=== PATIENT | male | born 1945 | race Caucasian/White ===

== ENCOUNTER 2018-06-04 15:20 | Inpatient (IN) ==
[2018-06-04] MEDS ORDERED: ONDANSETRON ODT 4 MG TABLET PO STA (16:10)
[2018-06-04 16:20] LABS: Basophils % 0.2 % (0.0-0.8); Hemoglobin 12.1 GM/DL (14.0-18.0); Immature Granulocytes % 0.4 %; Immature Granulocytes Absolute 0.02 #; Lymphocytes # 0.3 10*3/uL (1.4-4.0); Lymphocytes % 4.9 % (21.2-54.2); Mean Corpuscular HGB Conc 32.7 GM/DL (32-36); Mean Corpuscular Hemoglobin 29 PG (27-34); Mean Corpuscular Volume 88.9 FL (87-102); Monocytes # 0.3 10*3/uL (0.11-0.8); Monocytes % 5.3 % (1.7-12.7); Neutrophils # 4.8 10*3/uL (1.4-7.4); Neutrophils % 89.2 % (38.7-73.9); Platelet Count 151 T/CUMM (130-400); Red Blood Count 4.16 MC/CUMM (3.8-5.5); Red Cell Distribution Width 13.5 % (9.3-17.3); White Blood Count 5.3 T/CUMM (4-12)
[2018-06-04 16:29] LABS: PT Patient Result 10.4 SECS; Partial Thromboplastin Time 30.9 SECS (0-40)
[2018-06-04 16:31] LABS: Albumin 2.9 G/DL (3.4-5.0); Bilirubin,Total 0.4 MG/DL (0.2-1.0); Calcium 8.2 MG/DL (8.5-10.1); Osmolality,Calculated 284.5 MOS/KG (273-304); Potassium 3.8 MMOL/L (3.5-5.1); Total Protein 6.8 G/DL (6.4-8.3)
[2018-06-04 16:59] LABS: Band Neutrophils 41 % (0-10); Lymphocytes 4 % (20-55); Segmented Neutrophils 51 % (50-85); Total Cells Counted 100
[2018-06-04 17:00] LABS: Platelet Estimate Normal
[2018-06-04 17:01] LABS: Ovalocytes 1+; Polychromasia Few
[2018-06-04 17:02] LABS: Burr Cells 1+; Macrocytosis Slight
[2018-06-04 17:09] LABS: Poikilocytosis Slight
[2018-06-04] MEDS ORDERED: cefTRIAXone 1,000 MG VIAL IV STA (17:52)
[2018-06-04] MEDS ORDERED: ONDANSETRON 4 MG/2 ML VIAL IV PRN (19:47)
[2018-06-04] MEDS ORDERED: ACETAMINOPHEN 325 MG TABLET PO PRN (19:47)
[2018-06-04] MEDS ORDERED: MEROPENEM 1,000 MG in SODIUM CHLORIDE 0.9% 100 ML IV SCH (21:00)
[2018-06-04 21:08] LABS: ABG HCO3 18.6 MMOL/L (20-26); ABG Oxygen Saturation 89.8 % (95-100); ABG PCO2 32.8 MM HG (35-48); ABG PH 7.345 (7.35-7.45); ABG PO2 61.8 MM HG (80-95); ABG TCO2 16.3 MMOL/L (23-27); Allen Test Positive; Pt O2 Delivery Device Venturi Mask
[2018-06-04] MEDS: DOCUSATE SODIUM 100 MG CAPSULE PO SCH (21:29)
[2018-06-04] MEDS: CLINDAMYCIN INJ 300 MG in PREMIX 1 EACH IV SCH (23:05)
[2018-06-05 03:06] LABS: ABG Base Excess -5.4 MMOL/L (-2.5-2.5); ABG HCO3 19.6 MMOL/L (20-26); ABG Oxygen Saturation 96.2 % (95-100); ABG PCO2 35.9 MM HG (35-48); ABG PH 7.354 (7.35-7.45); ABG PO2 92.5 MM HG (80-95); ABG TCO2 20.7 MMOL/L (23-27); Allen Test Positive; Pt O2 Delivery Device Other
[2018-06-05] MEDS: CLINDAMYCIN INJ 300 MG in PREMIX 1 EACH IV SCH ×2 (04:07→09:26)
[2018-06-05] MEDS: MEROPENEM 1,000 MG in SODIUM CHLORIDE 0.9% 100 ML IV SCH ×3 (05:17→22:13)
[2018-06-05 05:21] LABS: Basophils % 0.3 % (0.0-0.8); Hematocrit 29.5 VOL% (42.0-52.0); Hemoglobin 9.6 GM/DL (14.0-18.0); Immature Granulocytes % 0.6 %; Immature Granulocytes Absolute 0.04 #; Lymphocytes # 0.6 10*3/uL (1.4-4.0); Lymphocytes % 9.5 % (21.2-54.2); Mean Corpuscular HGB Conc 32.5 GM/DL (32-36); Mean Corpuscular Hemoglobin 29 PG (27-34); Mean Corpuscular Volume 88.9 FL (87-102); Mean Platelet Volume 11.8 FL (9.6-12.0); Monocytes # 0.4 10*3/uL (0.11-0.8); Monocytes % 6.5 % (1.7-12.7); Neutrophils # 5.1 10*3/uL (1.4-7.4); Neutrophils % 83.1 % (38.7-73.9); Platelet Count 172 T/CUMM (130-400); Red Blood Count 3.32 MC/CUMM (3.8-5.5); Red Cell Distribution Width 13.5 % (9.3-17.3); White Blood Count 6.2 T/CUMM (4-12)
[2018-06-05 05:51] LABS: Osmolality,Calculated 286.7 MOS/KG (273-304); Potassium 3.5 MMOL/L (3.5-5.1)
[2018-06-05 05:59] LABS: Anisocytosis 1+; Ovalocytes 2+
[2018-06-05 06:00] LABS: Platelet Estimate Adequate
[2018-06-05] MEDS ORDERED: LISINOPRIL 20 MG TABLET PO SCH (09:00)
[2018-06-05] MEDS: DOCUSATE SODIUM 100 MG CAPSULE PO SCH ×2 (09:21→22:12)
[2018-06-05] MEDS: CLOPIDOGREL 75 MG TABLET PO SCH (09:22)
[2018-06-05] MEDS: PANTOPRAZOLE 40 MG TABLET PO SCH (09:22)
[2018-06-05] MEDS: CILOSTAZOL 50 MG TABLET PO SCH ×2 (09:23→22:12)
[2018-06-05] MEDS: amLODIPine 5 MG TABLET PO SCH (09:24)
[2018-06-05] MEDS: ROSUVASTATIN 20 MG TABLET PO SCH (09:24)
[2018-06-05] MEDS: methIMAzole 10 MG TABLET PO SCH (09:25)
[2018-06-05] MEDS: ASPIRIN EC 81 MG TABLET PO SCH (09:25)
[2018-06-05] MEDS: CARVEDILOL 6.25 MG TABLET PO SCH ×2 (09:25→22:12)
[2018-06-05] MEDS: AZITHROMYCIN INJ 500 MG in SODIUM CHLORIDE 0.9% 250 ML IV SCH (11:04)
[2018-06-05] MEDS: methylPREDNISolone SOD SUC 40 MG/1 ML VIAL IV SCH ×2 (11:04→23:15)
[2018-06-05] MEDS ORDERED: MAGNESIUM SULF RIDER 2 GM in PREMIX 1 EACH IV ONE (11:43)
[2018-06-05] MEDS: ASCORBIC ACID 500 MG TABLET PO SCH ×2 (12:05→22:12)
[2018-06-05] MEDS ORDERED: POTASSIUM CHLORIDE RIDER 10 MEQ in PREMIX 1 EACH IV PRN (12:08)
[2018-06-05] MEDS: ALBUTEROL/IPRATROPIUM 3 ML NEB RESP TX SCH ×5 (14:40→23:24)
[2018-06-05] MEDS ORDERED: DEXTROSE 50% 25 GM/50 ML VIAL IV PRN (16:36)
[2018-06-05] MEDS ORDERED: GLUCAGON 1 MG VIAL IM PRN (16:36)
[2018-06-05] MEDS: INSULIN LISPRO 100 UNIT/ML SUBCUT SCH (22:12)
[2018-06-06] MEDS: ALBUTEROL/IPRATROPIUM 3 ML NEB RESP TX SCH ×6 (02:37→23:37)
[2018-06-06 04:56] LABS: Basophils % 0.2 % (0.0-0.8); Hematocrit 28.9 VOL% (42.0-52.0); Hemoglobin 9.2 GM/DL (14.0-18.0); Immature Granulocytes % 0.8 %; Immature Granulocytes Absolute 0.05 #; Lymphocytes # 0.5 10*3/uL (1.4-4.0); Lymphocytes % 7.3 % (21.2-54.2); Mean Corpuscular HGB Conc 31.8 GM/DL (32-36); Mean Corpuscular Hemoglobin 29 PG (27-34); Mean Platelet Volume 11.6 FL (9.6-12.0); Monocytes # 0.2 10*3/uL (0.11-0.8); Monocytes % 3.5 % (1.7-12.7); Neutrophils # 5.9 10*3/uL (1.4-7.4); Neutrophils % 88.2 % (38.7-73.9); Platelet Count 181 T/CUMM (130-400); Red Blood Count 3.21 MC/CUMM (3.8-5.5); Red Cell Distribution Width 13.6 % (9.3-17.3); White Blood Count 6.6 T/CUMM (4-12)
[2018-06-06 05:24] LABS: Calcium 7.5 MG/DL (8.5-10.1)
[2018-06-06 06:02] LABS: Band Neutrophils 3 % (0-10); Lymphocytes 8 % (20-55); Metamyelocytes 1 %; Platelet Estimate Normal; Segmented Neutrophils 85 % (50-85); Total Cells Counted 100
[2018-06-06 06:03] LABS: Acanthocytes 1+; Anisocytosis 1+; Macrocytosis 1+; Ovalocytes 1+
[2018-06-06] MEDS: MEROPENEM 1,000 MG in SODIUM CHLORIDE 0.9% 100 ML IV SCH (06:19)
[2018-06-06] MEDS: CLOPIDOGREL 75 MG TABLET PO SCH (09:02)
[2018-06-06] MEDS: DOCUSATE SODIUM 100 MG CAPSULE PO SCH ×2 (09:02→21:24)
[2018-06-06] MEDS: PANTOPRAZOLE 40 MG TABLET PO SCH (09:02)
[2018-06-06] MEDS: CILOSTAZOL 50 MG TABLET PO SCH ×2 (09:02→21:24)
[2018-06-06] MEDS: amLODIPine 5 MG TABLET PO SCH (09:02)
[2018-06-06] MEDS: ROSUVASTATIN 20 MG TABLET PO SCH (09:02)
[2018-06-06] MEDS: ASPIRIN EC 81 MG TABLET PO SCH (09:02)
[2018-06-06] MEDS: methIMAzole 10 MG TABLET PO SCH (09:02)
[2018-06-06] MEDS: CARVEDILOL 6.25 MG TABLET PO SCH ×2 (09:02→21:24)
[2018-06-06] MEDS: ASCORBIC ACID 500 MG TABLET PO SCH ×2 (09:02→21:24)
[2018-06-06] MEDS: INSULIN LISPRO 100 UNIT/ML SUBCUT SCH ×4 (09:05→21:24)
[2018-06-06] MEDS: methylPREDNISolone SOD SUC 40 MG/1 ML VIAL IV SCH ×2 (10:52→23:08)
[2018-06-06] MEDS: AZITHROMYCIN INJ 500 MG in SODIUM CHLORIDE 0.9% 250 ML IV SCH (10:52)
[2018-06-06] MEDS ORDERED: SODIUM CHLORIDE 0.9% 100 ML IV ONE (17:05)
[2018-06-06] MEDS: MEROPENEM 500 MG in SYRINGE 1 EACH IV SCH (17:38)
[2018-06-07] MEDS: ALBUTEROL/IPRATROPIUM 3 ML NEB RESP TX SCH ×6 (03:31→23:34)
[2018-06-07 04:38] LABS: Basophils % 0.1 % (0.0-0.8); Hemoglobin 9.5 GM/DL (14.0-18.0); Immature Granulocytes % 1.5 %; Immature Granulocytes Absolute 0.17 #; Lymphocytes # 0.8 10*3/uL (1.4-4.0); Lymphocytes % 7.3 % (21.2-54.2); Mean Corpuscular HGB Conc 32.8 GM/DL (32-36); Mean Corpuscular Hemoglobin 29 PG (27-34); Mean Platelet Volume 11.6 FL (9.6-12.0); Monocytes # 0.6 10*3/uL (0.11-0.8); Monocytes % 5.2 % (1.7-12.7); Neutrophils # 9.9 10*3/uL (1.4-7.4); Neutrophils % 85.9 % (38.7-73.9); Platelet Count 204 T/CUMM (130-400); Red Blood Count 3.26 MC/CUMM (3.8-5.5); Red Cell Distribution Width 13.5 % (9.3-17.3); White Blood Count 11.5 T/CUMM (4-12)
[2018-06-07 04:57] LABS: Calcium 7.8 MG/DL (8.5-10.1); Potassium 4.3 MMOL/L (3.5-5.1)
[2018-06-07 05:04] LABS: Platelet Estimate Normal; Polychromasia Few
[2018-06-07] MEDS: MEROPENEM 500 MG in SYRINGE 1 EACH IV SCH ×2 (05:43→17:40)
[2018-06-07] MEDS: ROSUVASTATIN 20 MG TABLET PO SCH (09:12)
[2018-06-07] MEDS: methIMAzole 10 MG TABLET PO SCH (09:12)
[2018-06-07] MEDS: DOCUSATE SODIUM 100 MG CAPSULE PO SCH ×2 (09:12→21:30)
[2018-06-07] MEDS: CILOSTAZOL 50 MG TABLET PO SCH ×2 (09:12→21:31)
[2018-06-07] MEDS: CARVEDILOL 6.25 MG TABLET PO SCH ×2 (09:13→21:30)
[2018-06-07] MEDS: PANTOPRAZOLE 40 MG TABLET PO SCH (09:13)
[2018-06-07] MEDS: ASPIRIN EC 81 MG TABLET PO SCH (09:13)
[2018-06-07] MEDS: ASCORBIC ACID 500 MG TABLET PO SCH ×2 (09:13→21:30)
[2018-06-07] MEDS: amLODIPine 5 MG TABLET PO SCH (09:13)
[2018-06-07] MEDS: CLOPIDOGREL 75 MG TABLET PO SCH (09:13)
[2018-06-07] MEDS: INSULIN LISPRO 100 UNIT/ML SUBCUT SCH ×4 (09:14→21:30)
[2018-06-07] MEDS: methylPREDNISolone SOD SUC 40 MG/1 ML VIAL IV SCH ×2 (12:00→23:47)
[2018-06-07] MEDS: AZITHROMYCIN INJ 500 MG in SODIUM CHLORIDE 0.9% 250 ML IV SCH (12:01)
[2018-06-08] MEDS: ALBUTEROL/IPRATROPIUM 3 ML NEB RESP TX SCH ×6 (03:23→23:46)
[2018-06-08 04:34] LABS: Basophils % 0.1 % (0.0-0.8); Hematocrit 29.4 VOL% (42.0-52.0); Hemoglobin 9.6 GM/DL (14.0-18.0); Immature Granulocytes % 1.9 %; Immature Granulocytes Absolute 0.22 #; Lymphocytes # 0.7 10*3/uL (1.4-4.0); Lymphocytes % 5.6 % (21.2-54.2); Mean Corpuscular HGB Conc 32.7 GM/DL (32-36); Mean Corpuscular Hemoglobin 29 PG (27-34); Mean Corpuscular Volume 87.8 FL (87-102); Mean Platelet Volume 11.6 FL (9.6-12.0); Monocytes # 0.7 10*3/uL (0.11-0.8); Neutrophils # 10.2 10*3/uL (1.4-7.4); Neutrophils % 86.4 % (38.7-73.9); Platelet Count 219 T/CUMM (130-400); Red Blood Count 3.35 MC/CUMM (3.8-5.5); Red Cell Distribution Width 13.5 % (9.3-17.3); White Blood Count 11.8 T/CUMM (4-12)
[2018-06-08 04:58] LABS: Albumin 2.3 G/DL (3.4-5.0); Bilirubin,Total 0.4 MG/DL (0.2-1.0); Potassium 4.8 MMOL/L (3.5-5.1); Total Protein 6.5 G/DL (6.4-8.3)
[2018-06-08] MEDS: MEROPENEM 500 MG in SYRINGE 1 EACH IV SCH ×2 (05:55→17:21)
[2018-06-08] MEDS: INSULIN LISPRO 100 UNIT/ML SUBCUT SCH ×4 (09:26→21:33)
[2018-06-08] MEDS: PANTOPRAZOLE 40 MG TABLET PO SCH (09:27)
[2018-06-08] MEDS: CARVEDILOL 6.25 MG TABLET PO SCH ×2 (09:27→21:33)
[2018-06-08] MEDS: ASCORBIC ACID 500 MG TABLET PO SCH ×2 (09:27→21:33)
[2018-06-08] MEDS: CILOSTAZOL 50 MG TABLET PO SCH ×2 (09:27→21:33)
[2018-06-08] MEDS: amLODIPine 5 MG TABLET PO SCH (09:27)
[2018-06-08] MEDS: DOCUSATE SODIUM 100 MG CAPSULE PO SCH ×2 (09:27→21:33)
[2018-06-08] MEDS: ASPIRIN EC 81 MG TABLET PO SCH (09:27)
[2018-06-08] MEDS: methIMAzole 10 MG TABLET PO SCH (09:27)
[2018-06-08] MEDS: CLOPIDOGREL 75 MG TABLET PO SCH (09:27)
[2018-06-08] MEDS: ROSUVASTATIN 20 MG TABLET PO SCH (09:27)
[2018-06-08] MEDS: AZITHROMYCIN INJ 500 MG in SODIUM CHLORIDE 0.9% 250 ML IV SCH (10:58)
[2018-06-08] MEDS ORDERED: methylPREDNISolone SOD SUC 40 MG/1 ML VIAL IV SCH (21:00)
[2018-06-09] MEDS: ALBUTEROL/IPRATROPIUM 3 ML NEB RESP TX SCH ×4 (03:50→14:20)
[2018-06-09 05:42] LABS: Calcium 8.5 MG/DL (8.5-10.1); Osmolality,Calculated 302.8 MOS/KG (273-304); Potassium 5.4 MMOL/L (3.5-5.1)
[2018-06-09] MEDS: MEROPENEM 500 MG in SYRINGE 1 EACH IV SCH (06:05)
[2018-06-09] MEDS: ROSUVASTATIN 20 MG TABLET PO SCH (09:14)
[2018-06-09] MEDS: CILOSTAZOL 50 MG TABLET PO SCH (09:14)
[2018-06-09] MEDS: PANTOPRAZOLE 40 MG TABLET PO SCH (09:15)
[2018-06-09] MEDS: methIMAzole 10 MG TABLET PO SCH (09:15)
[2018-06-09] MEDS: ASPIRIN EC 81 MG TABLET PO SCH (09:15)
[2018-06-09] MEDS: CARVEDILOL 6.25 MG TABLET PO SCH (09:15)
[2018-06-09] MEDS: DOCUSATE SODIUM 100 MG CAPSULE PO SCH (09:15)
[2018-06-09] MEDS: ASCORBIC ACID 500 MG TABLET PO SCH (09:15)
[2018-06-09] MEDS: CLOPIDOGREL 75 MG TABLET PO SCH (09:15)
[2018-06-09] MEDS: INSULIN LISPRO 100 UNIT/ML SUBCUT SCH ×2 (09:15→11:47)
[2018-06-09] MEDS: amLODIPine 5 MG TABLET PO SCH (09:15)
[2018-06-09] MEDS: AZITHROMYCIN INJ 500 MG in SODIUM CHLORIDE 0.9% 250 ML IV SCH (11:49)
[2018-06-09 12:45] VITALS: BP 170/72
== END 2018-06-09 15:22 | disposition home health service (06) | DRG 193 ==
LOC: EDBD → EDUNIT# → N.TELEN 15:20 → N.ED 15:20 → N.TELEN 19:43
PROVIDERS: ADMIT Family Medicine; ATTEND Family Medicine

== ENCOUNTER 2020-09-30 13:07 | Observation (INO) ==
[2020-09-30] MEDS ORDERED: GLUCAGON 1 MG VIAL IM PRN (15:49)
[2020-09-30] MEDS ORDERED: NICOTINE 21 MG/24 HR PATCH TRANSDERM PRN (15:49)
[2020-09-30] MEDS ORDERED: MORPHINE 4 MG/1 ML VIAL IV PRN (15:49)
[2020-09-30] MEDS ORDERED: DEXTROSE 50% 25 GM/50 ML VIAL IV PRN (15:49)
[2020-09-30] MEDS ORDERED: ALUM/MAG/SIMETH/LIDO VISC 1:1 30 ML BOTTLE PO ONE (15:52)
[2020-09-30 16:21] LABS: Basophils % 0.3 % (0.0-0.8); Eosinophils # 0.1 10*3/uL (0.0-0.87); Eosinophils % 0.7 % (0.00-10.9); Hematocrit 37.2 VOL% (42.0-52.0); Hemoglobin 11.8 GM/DL (14.0-18.0); Immature Granulocytes % 0.3 %; Immature Granulocytes Absolute 0.04 #; Lymphocytes # 1.5 10*3/uL (1.4-4.0); Lymphocytes % 13.3 % (21.2-54.2); Mean Corpuscular HGB Conc 31.7 GM/DL (32-36); Mean Corpuscular Volume 86.7 FL (87-102); Mean Platelet Volume 11.4 FL (9.6-12.0); Neutrophils % 79.4 % (38.7-73.9); Platelet Count 219 T/CUMM (130-400); Red Blood Count 4.29 MC/CUMM (3.8-5.5); Red Cell Distribution Width 15.7 % (9.3-17.3); White Blood Count 11.5 T/CUMM (4-12)
[2020-09-30] MEDS ORDERED: FUROSEMIDE 40 MG/4 ML VIAL IV ONE (16:35)
[2020-09-30 16:48] LABS: Alanine Aminotransferase 50 U/L (16-61); Albumin 3.3 G/DL (3.4-5.0); Alkaline Phosphatase 103 U/L (45-117); Aspartate Amino Transferase 38 U/L (0-37); Bilirubin,Total < 0.39 MG/DL (0.2-1.0); Blood Urea Nitrogen 83 MG/DL (7-18); Calcium 9.2 MG/DL (8.5-10.1); Carbon Dioxide 17 MMOL/L (21-32); Estimated Glom Filtration Rate 35 ML/MIN; Glucose 107 MG/DL (74-106); Osmolality,Calculated 301.5 MOS/KG (273-304); Potassium 4.6 MMOL/L (3.5-5.1); Sodium 139 MMOL/L (136-145); Total Protein 7.7 G/DL (6.4-8.2)
[2020-09-30] MEDS: PANTOPRAZOLE 40 MG TABLET PO SCH (17:03)
[2020-09-30] MEDS: ENOXAPARIN 40 MG/0.4 ML SYRINGE SUBCUT SCH (17:03)
[2020-09-30] MEDS: INSULIN LISPRO 100 UNIT/ML SUBCUT SCH ×2 (17:11→22:00)
[2020-09-30] MEDS: ASPIRIN 325 MG TABLET PO SCH ×2 (17:50→18:03)
[2020-09-30] MEDS ORDERED: ASPIRIN EC 325 MG TABLET PO ONE (17:55)
[2020-09-30] MEDS: cilostazoL 50 MG TABLET PO SCH (21:59)
[2020-10-01 04:57] LABS: Basophils # 0.1 10*3/uL (0.0-0.2); Basophils % 0.6 % (0.0-0.8); Eosinophils # 0.2 10*3/uL (0.0-0.87); Eosinophils % 1.8 % (0.00-10.9); Hematocrit 36.6 VOL% (42.0-52.0); Hemoglobin 12.1 GM/DL (14.0-18.0); Immature Granulocytes % 0.2 %; Immature Granulocytes Absolute 0.02 #; Lymphocytes # 1.3 10*3/uL (1.4-4.0); Lymphocytes % 15.4 % (21.2-54.2); Mean Corpuscular HGB Conc 33.1 GM/DL (32-36); Mean Corpuscular Volume 83.4 FL (87-102); Mean Platelet Volume 12.1 FL (9.6-12.0); Monocytes % 6.6 % (1.7-12.7); Neutrophils % 75.4 % (38.7-73.9); Platelet Count 210 T/CUMM (130-400); Red Blood Count 4.39 MC/CUMM (3.8-5.5); Red Cell Distribution Width 15.6 % (9.3-17.3); White Blood Count 8.5 T/CUMM (4-12)
[2020-10-01 05:32] LABS: Calcium 9.1 MG/DL (8.5-10.1); Osmolality,Calculated 299.5 MOS/KG (273-304); Potassium 4.6 MMOL/L (3.5-5.1); Risk Ratio 4.13; VLDL CHOLESTEROL 27.4 MG/DL
[2020-10-01] MEDS: ONDANSETRON 4 MG/2 ML VIAL IV PRN (08:10)
[2020-10-01] MEDS: INSULIN LISPRO 100 UNIT/ML SUBCUT SCH ×4 (08:11→20:31)
[2020-10-01] MEDS ORDERED: PANTOPRAZOLE 40 MG TABLET PO SCH (09:00)
[2020-10-01] MEDS: CLOPIDOGREL 75 MG TABLET PO SCH (09:17)
[2020-10-01] MEDS: ROSUVASTATIN 20 MG TABLET PO SCH (09:18)
[2020-10-01] MEDS: methIMAzole 5 MG TABLET PO SCH (09:18)
[2020-10-01] MEDS: cilostazoL 50 MG TABLET PO SCH ×2 (09:18→20:31)
[2020-10-01] MEDS: ASPIRIN EC 81 MG TABLET PO SCH (09:19)
[2020-10-01] MEDS: PANTOPRAZOLE 40 MG TABLET PO SCH (09:19)
[2020-10-01] MEDS ORDERED: ALUM/MAG/SIMETH/LIDO VISC 1:1 30 ML BOTTLE PO ONE (15:58)
[2020-10-01] MEDS ORDERED: ALUMINUM/MAGNES/SIMETH MAX STR 30 ML UDCUP PO PRN (15:58)
[2020-10-01] MEDS ORDERED: CALCIUM CARBONATE CHEW 500 MG TABLET PO PRN (15:58)
[2020-10-01] MEDS: ENOXAPARIN 40 MG/0.4 ML SYRINGE SUBCUT SCH (16:35)
[2020-10-02] MEDS: ONDANSETRON 4 MG/2 ML VIAL IV PRN ×2 (04:03→09:05)
[2020-10-02 06:14] LABS: Basophils # 0.1 10*3/uL (0.0-0.2); Basophils % 0.6 % (0.0-0.8); Eosinophils # 0.2 10*3/uL (0.0-0.87); Eosinophils % 1.4 % (0.00-10.9); Hematocrit 37.8 VOL% (42.0-52.0); Hemoglobin 12.1 GM/DL (14.0-18.0); Immature Granulocytes % 0.4 %; Immature Granulocytes Absolute 0.04 #; Lymphocytes # 1.3 10*3/uL (1.4-4.0); Lymphocytes % 11.9 % (21.2-54.2); Mean Corpuscular Volume 85.3 FL (87-102); Monocytes % 5.9 % (1.7-12.7); Neutrophils % 79.8 % (38.7-73.9); Platelet Count 233 T/CUMM (130-400); Red Blood Count 4.43 MC/CUMM (3.8-5.5); Red Cell Distribution Width 15.8 % (9.3-17.3); White Blood Count 10.9 T/CUMM (4-12)
[2020-10-02 06:42] LABS: Calcium 9.1 MG/DL (8.5-10.1); Osmolality,Calculated 298.2 MOS/KG (273-304); Potassium 4.6 MMOL/L (3.5-5.1)
[2020-10-02] MEDS: INSULIN LISPRO 100 UNIT/ML SUBCUT SCH ×4 (09:05→23:18)
[2020-10-02] MEDS: cilostazoL 50 MG TABLET PO SCH ×2 (09:06→21:19)
[2020-10-02] MEDS: ROSUVASTATIN 20 MG TABLET PO SCH (09:06)
[2020-10-02] MEDS: PANTOPRAZOLE 40 MG TABLET PO SCH ×2 (09:06→21:19)
[2020-10-02] MEDS: methIMAzole 5 MG TABLET PO SCH (09:07)
[2020-10-02] MEDS: ASPIRIN EC 81 MG TABLET PO SCH (09:07)
[2020-10-02] MEDS: CLOPIDOGREL 75 MG TABLET PO SCH (09:07)
[2020-10-02] MEDS: ALBUTEROL/IPRATROPIUM 3 ML NEB RESP TX SCH ×4 (10:40→23:00)
[2020-10-02] MEDS: ENOXAPARIN 40 MG/0.4 ML SYRINGE SUBCUT SCH (16:01)
[2020-10-02] MEDS ORDERED: FUROSEMIDE 40 MG/4 ML VIAL IV ONE (17:01)
[2020-10-03] MEDS: ALBUTEROL/IPRATROPIUM 3 ML NEB RESP TX SCH ×4 (04:45→14:51)
[2020-10-03 06:33] LABS: Calcium 8.8 MG/DL (8.5-10.1); Potassium 4.7 MMOL/L (3.5-5.1)
[2020-10-03] MEDS: ASPIRIN EC 81 MG TABLET PO SCH (09:07)
[2020-10-03] MEDS: PANTOPRAZOLE 40 MG TABLET PO SCH (09:07)
[2020-10-03] MEDS: cilostazoL 50 MG TABLET PO SCH (09:07)
[2020-10-03] MEDS: methIMAzole 5 MG TABLET PO SCH (09:07)
[2020-10-03] MEDS: CLOPIDOGREL 75 MG TABLET PO SCH (09:08)
[2020-10-03] MEDS: ROSUVASTATIN 20 MG TABLET PO SCH (09:08)
[2020-10-03] MEDS: INSULIN LISPRO 100 UNIT/ML SUBCUT SCH ×2 (09:09→14:38)
[2020-10-03 11:50] VITALS: BP 112/51
== END 2020-10-03 16:47 | disposition home or self-care (01) ==
LOC: N.TELEN → SUATTDRO 14:21 → OBSVTOIN 14:21 → INTOOBSV 14:21
PROVIDERS: ADMIT Internal Medicine; ATTEND Internal Medicine